=== PATIENT | male | born 1990 | race Caucasian/White ===

== ENCOUNTER 2024-09-11 14:14 | Emergency (ER) | payer SELFPAY ==
[~2024-09-11] VITALS: Ht 175.3 cm; Wt 72.7 kg
[2024-09-11 14:24] VITALS: BP 122/79; PULSE 63; RESP 16; TEMP 98; O2SAT 100
[2024-09-11] MEDS ORDERED: INSLAN SQ (14:24)
[2024-09-11 14:46] LABS: GLUCOMETER DEV NAME(LOC) ER.7; GLUCOSE,POINT OF CARE 110 MG/DL (70-110)
[2024-09-11] MEDS: FLUORESCEIN SODIUM 1 MG STRIP OS ONE (15:34)
[2024-09-11] MEDS: PROPARACAINE HCL 0.5% 15 ML OPHTHALMIC SOLUTION OS ONE (15:34)
[2024-09-11] MEDS: OFLOXACIN 0.3% 5 ML OPHTHALMIC SOLUTION OS ONE (16:07)
[2024-09-11] MEDS ORDERED: OFLO5DRO49 OS (16:09)
== END 2024-09-11 16:11 | disposition home or self-care (01) ==
LOC: EMS 14:14
DX: S05.02XA Injury of conjunctiva and corneal abrasion without foreign body, left eye, initial encounter (principal); E11.9 Type 2 diabetes mellitus without complications; W44.9XXA Unspecified foreign body entering into or through a natural orifice, initial encounter; Y93.89 Activity, other specified; Y92.89 Other specified places as the place of occurrence of the external cause; Y99.8 Other external cause status
CPT/HCPCS: 82962; 99283